=== PATIENT | female | born 1960 | race Caucasian/White ===

== ENCOUNTER → 2024-02-08 12:32 | Outpatient (REF) | payer BC, SELFPAY ==
[2024-02-08 12:53] VITALS: BP 164/76; BP_SYST 76
== END ==
LOC: RADI 12:32
PROVIDERS: ATTENDING PHYSICIAN Internal Medicine Endocrinology, Diabetes & Metabolism; FAMILY PHYSICIAN Internal Medicine
DX: E04.2 Nontoxic multinodular goiter (principal)
CPT/HCPCS: 88173; 10005; 10006